=== PATIENT | male | born 1955 | race Caucasian/White ===

== ENCOUNTER 2016-12-25 09:36 | Day surgery (SDC) | payer OTHER, MEDICAID ==
[~2016-12-25] VITALS: Ht 165.1 cm; Wt 83.9 kg
[~2016-12-25 09:36] MED LIST: AMLO10TA80 PO; CIPR-213 PO; DIFL5DRO BOTHEYE; DIPH25CA83 PO; FLUT9.9S NS; LORA10TA7 PO; MELO-58 PO; MOME13HF IH; NEOM15CR4 TP; P20 PO; PANT40TA4 PO; SIMV20TA6 PO; SITA100T6 PO; TRAM50TA3 PO
[2016-12-25] MEDS ORDERED: SODIUM CHLORIDE 0.9% 1,000 ML IV SCH (11:45)
[2016-12-25] MEDS ORDERED: SODIUM CHLORIDE 0.9% 10ML VIAL ONE (13:30)
[2016-12-25] MEDS ORDERED: PROPOFOL 200MG/20ML VIAL IV ONE (13:30)
[2016-12-25] MEDS ORDERED: LIDOCAINE HCL 1% 20ML VIAL (Pyxis) INJ ONE (13:30)
[2016-12-25] MEDS ORDERED: CEFAZOLIN SODIUM 1000MG/VIAL ONE (13:30)
[2016-12-25] MEDS ORDERED: DEXAMETHASONE 4MG/ML 1ML VIAL ONE (13:32)
[2016-12-25] MEDS ORDERED: MIDAZOLAM HCL 2 MG/2 ML VIAL ONE (13:32)
[2016-12-25] MEDS ORDERED: HYDROMORPHONE HCL/PF 2MG/ML CPJ IV PRN (13:45)
[2016-12-25] MEDS ORDERED: MEPERIDINE HCL/PF 25MG/ML CPJ IV PRN (13:45)
[2016-12-25] MEDS ORDERED: LABETALOL HCL 20MG/4ML CARPUJECT IV PRN (13:45)
[2016-12-25] MEDS ORDERED: ONDANSETRON HCL 4MG/2ML VIAL IV PRN (13:45)
[2016-12-25] MEDS ORDERED: FENTANYL CITRATE/PF 50MCG/ML 2ML VIAL ONE (13:51)
[2016-12-25] MEDS ORDERED: TRIAMCINOLONE ACETONIDE 40MG/ML 1ML VIAL ONE (13:56)
[2016-12-25] MEDS ORDERED: TETRACAINE 0.5% OPHTH DROPS 4ML ONE (14:15)
[2016-12-25] MEDS ORDERED: BUPIVACAINE HCL/PF 0.75% (7.5MG/ML) 10ML ONE (14:15)
[2016-12-25] MEDS ORDERED: LIDOCAINE HCL 2%/EPINEPHRINE 1:100,000 20 ML VIAL INFIL ONE (14:15)
[2016-12-25] MEDS ORDERED: BALANCED SALT IRRIG SOLN 15ML ONE (14:15)
[2016-12-25] MEDS ORDERED: CIPROFLOXACIN 0.3% OPHTH SOLN 2.5ML ONE (14:15)
[2016-12-25] MEDS ORDERED: NEO/POLYMYX B SULF/DEXAMETH OPHTH OINT 3.5GM ONE (14:15)
[2016-12-25] MEDS ORDERED: PREDNISOLONE ACETATE 1% OPHTH DROPS 1ML ONE (14:15)
== END 2016-12-25 15:20 | disposition home or self-care (01) ==
LOC: OR 09:36
PROVIDERS: ATTEND Ophthalmology
DX: H11.001 Unspecified pterygium of right eye (principal); J45.909 Unspecified asthma, uncomplicated; E66.3 Overweight; I10 Essential (primary) hypertension; I25.2 Old myocardial infarction; I25.10 Atherosclerotic heart disease of native coronary artery without angina pectoris; Z86.73 Personal history of transient ischemic attack (TIA), and cerebral infarction without residual deficits
CPT/HCPCS: 65426; 82962; A4216; J0690; J1100; J2250; J3010; J3301; J3490; J7120; J2704

== ENCOUNTER 2017-02-12 08:55 | Day surgery (SDC) | payer MEDICAID, OTHER ==
[~2017-02-12] VITALS: Ht 165.1 cm; Wt 82.1 kg
[~2017-02-12 08:55] MED LIST changes: +MELO-106 PO; -MELO-58 PO; +SITA100T11 PO; -SITA100T6 PO
[2017-02-12] MEDS ORDERED: BALANCED SALT IRRIG SOLN COMB1 500ML OP ONE (09:45)
[2017-02-12] MEDS ORDERED: TROPICAMIDE 1% OPHTH DROPS 15ML LEFTEYE ONE (10:20)
[2017-02-12] MEDS ORDERED: CYCLOPENTOLATE HCL 2% OPHTH DROPS 2ML LEFTEYE ONE (10:20)
[2017-02-12] MEDS ORDERED: PHENYLEPHRINE HCL 10% OPHTH DROPS 5ML LEFTEYE ONE (10:20)
[2017-02-12] MEDS: SODIUM CHLORIDE 0.9% 1,000 ML IV SCH ×2 (11:10→11:24)
[2017-02-12] MEDS ORDERED: HYALURONATE SODIUM 14 MG/ML 0.85ML SYRINGE IO ONE (11:42)
[2017-02-12] MEDS ORDERED: CETI10TA6 PO (12:02)
[2017-02-12] MEDS ORDERED: ACETYLCHOLINE CHLORIDE INTRAOCULAR SOLUTION 1:100 ELECTROLYTE DILUENT IO ONE (13:59)
[2017-02-12] MEDS ORDERED: NEO/POLYMYX B SULF/DEXAMETH OPHTH OINT 3.5GM ONE (13:59)
[2017-02-12] MEDS ORDERED: LIDOCAINE HCL/PF 2% 20 MG/ML 10ML VIAL ONE (13:59)
[2017-02-12] MEDS ORDERED: TETRACAINE 0.5% OPHTH DROPS 4ML ONE (13:59)
[2017-02-12] MEDS ORDERED: PREDNISOLONE ACETATE 1% OPHTH DROPS 1ML ONE (13:59)
[2017-02-12] MEDS ORDERED: BALANCED SALT IRRIG SOLN 15ML ONE (13:59)
[2017-02-12] MEDS ORDERED: CIPROFLOXACIN 0.3% OPHTH SOLN 2.5ML ONE (13:59)
[2017-02-12] MEDS ORDERED: MIDAZOLAM HCL 2 MG/2 ML VIAL ONE (15:05)
[2017-02-12] MEDS ORDERED: FENTANYL CITRATE/PF 50MCG/ML 2ML VIAL ONE (15:06)
[2017-02-12] MEDS ORDERED: PROPOFOL 200MG/20ML VIAL IV ONE (15:07)
[2017-02-12] MEDS ORDERED: SODIUM CHLORIDE 0.9% 1,000 ML IV SCH (15:16)
[2017-02-12] MEDS ORDERED: ONDANSETRON HCL 4MG/2ML VIAL IV PRN (15:30)
[2017-02-12] MEDS ORDERED: MORPHINE SULFATE 4 MG/ML CPJ (NOT FOR IM USE) IV PRN (15:30)
== END 2017-02-12 17:30 | disposition home or self-care (01) ==
LOC: OR 08:55
PROVIDERS: ATTEND Ophthalmology
DX: E11.36 Type 2 diabetes mellitus with diabetic cataract (principal); H25.9 Unspecified age-related cataract; E66.3 Overweight; I10 Essential (primary) hypertension; K21.9 Gastro-esophageal reflux disease without esophagitis; I25.2 Old myocardial infarction; I25.10 Atherosclerotic heart disease of native coronary artery without angina pectoris; Z86.73 Personal history of transient ischemic attack (TIA), and cerebral infarction without residual deficits; J45.909 Unspecified asthma, uncomplicated; F32.9 Major depressive disorder, single episode, unspecified
CPT/HCPCS: 66984; 82962; J2250; J3010; J3490; J7030; V2632; J2704